=== PATIENT | male | born 1990 | race Caucasian/White ===

== ENCOUNTER 2016-12-10 04:29 | Emergency (ER) | payer SELFPAY ==
[2016-12-10 04:36] VITALS: BP 120/81
[2016-12-10] MEDS ORDERED: Ibuprofen TAB* 600 MG PO ONE (04:50)
[2016-12-10] MEDS ORDERED: Penicillin VK TAB* 250 MG PO ONE (04:50)
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
== END 2016-12-10 05:03 | disposition home or self-care (01) ==
LOC: ED 04:29
DX: K08.89 Other specified disorders of teeth and supporting structures (principal)
CPT/HCPCS: 99282; A9270-GY

== ENCOUNTER 2017-04-20 16:42 | Emergency (ER) | payer SELFPAY ==
[2017-04-20 16:49] VITALS: BP 118/72
--- NOTE | 2017-04-20 17:37 | UC ---
Lower Extremity/Ankle HPI - HPI Summary HPI Summary: Itchy, tender, red oval rash on L boogie starting yesterday. Pt had many stings on upper body from wasps but did not notice any on his lower legs. Denies fever or severe pain. Has been using topical benadryl without relief. - History of Current Complaint Chief Complaint: JOSEkin Stated Complaint: BUG BITE,RASH Time Seen by Provider: 04/20/17 17:23 Hx Obtained From: Patient Onset/Duration: Gradual Onset, Lasting Days Severity Initially: Mild Severity Currently: Moderate Alleviating Factor(s): Rest Able to Bear Weight: Yes - Allergies/Home Medications Allergies/Adverse Reactions: Allergies Allergy/AdvReac Type Severity Reaction Status Date / Time Acetaminophen [From Tylenol] Allergy Rash Verified 04/02/16 13:12 PMH/Surg Hx/FS Hx/Imm Hx - Additional Past Medical History Additional PMH: chronic back pain - Surgical History Surgical History: None - Family History Known Family History: Positive: Other - Panic attacks - Social History Lives: With Family Alcohol Use: Rare Substance Use Type: Marijuana, Prescribed Substance Use Comment - Amount & Last Used: hydrocodone 5/325 q4h prn, marijuana occasionally Smoking Status (MU): Light Every Day Tobacco Smoker Type: Cigarettes Cessation Counseling: Patient Advised to Stop Review of Systems Constitutional: Negative Skin: Rash Eyes: Negative ENT: Negative Respiratory: Negative Cardiovascular: Negative Gastrointestinal: Negative Genitourinary: Negative Motor: Negative Neurovascular: Negative Musculoskeletal: Negative Neurological: Negative Psychological: Negative All Other Systems Reviewed And Are Negative: Yes Physical Exam Triage Information Reviewed: Yes Appearance: Well-Appearing, No Pain Distress, Well-Nourished Vital Signs: Initial Vital Signs Temp 99.4 F 04/20/17 16:46 Pulse 80 04/20/17 16:46 Resp 18 04/20/17 16:46 BP 118/72 04/20/17 16:46 Pulse Ox 100 04/20/17 16:46 Vital Signs Reviewed: Yes Eye Exam: Normal, Other - PERRL Eyes: Positive: Conjunctiva Clear ENT Exam: Normal ENT: Positive: Normal ENT inspection, Hearing grossly normal, Pharynx normal, TMs normal Dental: Positive: Gross Decay/Caries @ - diffuse, all teeth decayed and broken Neck exam: Normal Respiratory Exam: Normal Respiratory: Positive: Chest non-tender, Lungs clear, Normal breath sounds, No respiratory distress, No accessory muscle use Cardiovascular Exam: Normal Cardiovascular: Positive: RRR, No Murmur Musculoskeletal Exam: Normal Musculoskeletal: Positive: Strength Intact, ROM Intact Psychological Exam: Normal Skin Exam: Other - 25cm x 18cm round reddened area on L boogie, itchy but not painful on exam, no streaking or drainage. Lower Extremity Course/Dx - Differential Dx/Diagnosis Provider Diagnoses: LLE insect sting, large local reaction Discharge - Discharge Plan Condition: Stable Disposition: HOME Prescriptions: predniSONE TAB* [Deltasone TAB*] 50 mg PO DAILY #3 tab Patient Education Materials: Insect Bite or Sting (ED) Referrals: Dennys SALGUERO,Ugo Voss [Primary Care Provider] - Additional Instructions: Call or return if you do not have gradual improvement over the next several days. Come back right away if you have streaking from the red area, fever, or increasing pain.
== END 2017-04-20 17:40 | disposition home or self-care (01) ==
LOC: UCEAST 16:42
DX: S80.862A Insect bite (nonvenomous), left lower leg, initial encounter (principal); R21 Rash and other nonspecific skin eruption; W57.XXXA Bitten or stung by nonvenomous insect and other nonvenomous arthropods, initial encounter; Y93.9 Activity, unspecified; Y92.9 Unspecified place or not applicable; Z88.6 Allergy status to analgesic agent; F12.90 Cannabis use, unspecified, uncomplicated; F17.210 Nicotine dependence, cigarettes, uncomplicated
CPT/HCPCS: 99212; G0463

== ENCOUNTER 2017-06-08 17:15 | Emergency (ER) | payer SELFPAY ==
--- NOTE | 2017-06-08 19:15 | RAD ---
INDICATION: Atraumatic left hip pain COMPARISON: None TECHNIQUE: 3 views of the left hip were obtained. FINDINGS: The visualized bones of the left hip are well-corticated and properly aligned. The joint spaces are normal. There is no radiographic evidence of acute fracture or dislocation. IMPRESSION: Normal radiograph of the left hip. If the patient's symptoms persist follow-up imaging is recommended.
[2017-06-08 19:46] VITALS: BP 109/64
--- NOTE | 2017-06-08 23:21 | UC ---
Lower Extremity/Ankle HPI - HPI Summary HPI Summary: 1 WEEK OF LEFT HIP PAIN. WORSE AT NIGHT AFTER LAYING DOWN FOR BED AND IN THE MORNING AND BETTER DURING THE DAY. NO DISCRETE INJURY. DOES A LOT OF PHYSICAL ACTIVITY AT WORK. NO SWELLING OR BRUISING. - History of Current Complaint Chief Complaint: UCLowerExtremity Stated Complaint: LEG PAIN Time Seen by Provider: 06/08/17 18:00 Hx Obtained From: Patient Onset/Duration: Sudden Onset, Lasting Days, Still Present Severity Initially: Moderate Severity Currently: Moderate Pain Intensity: 3 Pain Scale Used: 0-10 Numeric Aggravating Factor(s): Standing, Ambulation Alleviating Factor(s): Nothing Able to Bear Weight: Yes - Allergies/Home Medications Allergies/Adverse Reactions: Allergies Allergy/AdvReac Type Severity Reaction Status Date / Time Acetaminophen [From Tylenol] Allergy Rash Verified 04/02/16 13:12 Home Medications: Home Medications FLUoxetine CAP* [Prozac CAP*] 20 mg PO DAILY 06/08/17 [History Confirmed ] PMH/Surg Hx/FS Hx/Imm Hx Psychological History: Anxiety - Surgical History Surgical History: None - Family History Known Family History: Positive: Other - Panic attacks Negative: Hypertension - Social History Alcohol Use: Rare Substance Use Type: Marijuana, Prescribed Substance Use Comment - Amount & Last Used: hydrocodone 5/325 q4h prn, marijuana occasionally Smoking Status (MU): Light Every Day Tobacco Smoker Type: Cigarettes Review of Systems Constitutional: Negative Skin: Negative Respiratory: Negative Cardiovascular: Negative Gastrointestinal: Negative Musculoskeletal: Arthralgia, Decreased ROM, Myalgia All Other Systems Reviewed And Are Negative: Yes Physical Exam Triage Information Reviewed: Yes Appearance: Well-Appearing, No Pain Distress, Well-Nourished Vital Signs: Initial Vital Signs Temp 98.5 F 06/08/17 17:20 Pulse 52 06/08/17 17:20 Resp 19 06/08/17 17:20 BP 122/90 06/08/17 17:20 Pulse Ox 100 06/08/17 17:20 Vital Signs Reviewed: Yes Eyes: Positive: Conjunctiva Clear ENT: Positive: Hearing grossly normal Neck: Positive: Supple Respiratory: Positive: No respiratory distress, No accessory muscle use Cardiovascular: Positive: Pulses Normal Musculoskeletal: Positive: No Edema, ROM Limited @ - LEFT HIP, Other: - TTP LEFT GROIN/MUSCULATURE. NO BONY TENDERNESS. PELVIS STABLE. NEG STRAIGHT LEG RAISE. NEG LOIDA/FAIR Neurological: Positive: Alert Psychological: Positive: Age Appropriate Behavior Skin: Negative: rashes Diagnostics - Radiology LEFT HIP XRAYS Xray Interpretation: No Acute Changes Radiology Interpretation Completed By: Radiologist Lower Extremity Course/Dx - Differential Dx/Diagnosis Provider Diagnoses: LEFT GROIN/MUSCLE STRAIN Discharge - Discharge Plan Condition: Stable Disposition: HOME Prescriptions: Cyclobenzaprine TAB* [Flexeril TAB*] 10 mg PO BID PRN #30 tab PRN Reason: Pain Naproxen [Naproxen EC] 500 mg PO BID PRN #30 tab PRN Reason: Pain Patient Education Materials: Muscle Strain (ED), Groin Strain (ED) Referrals: Dennys SALGUERO,Ugo Voss [Primary Care Provider] - If Needed Genaro Castañeda MD [Medical Doctor] - 2 Weeks Additional Instructions: LEFT HIP XRAY UNREMARKABLE. YOUR EXAM IS SUGGESTIVE OF A MUSCLE STRAIN. REST, STRETCH AND FOLLOW-UP WITH YOUR PCP OR ORTHO IF YOU ARE NOT IMPROVING OVER THE NEXT 1-2 WEEKS. BE AWARE THAT COADMINISTRATION OF FLEXERIL AND SSRI CAN INCREASE YOUR RISK OF SEROTONIN SYNDROME. IF YOU DEVELOP AGITATION, CONFUSION, SWEATS, TREMOR, MUSCLE STIFFNESS GO DIRECTLY TO THE ER
== END 2017-06-08 19:47 | disposition home or self-care (01) ==
LOC: UCEAST 17:15
DX: S39.011A Strain of muscle, fascia and tendon of abdomen, initial encounter (principal); X58.XXXA Exposure to other specified factors, initial encounter; Y93.9 Activity, unspecified; Y92.9 Unspecified place or not applicable; F41.9 Anxiety disorder, unspecified; Z88.6 Allergy status to analgesic agent; F12.90 Cannabis use, unspecified, uncomplicated; F17.210 Nicotine dependence, cigarettes, uncomplicated
CPT/HCPCS: 99212; G0463

== ENCOUNTER 2017-09-03 11:05 | Emergency (ER) | payer SELFPAY ==
[2017-09-03 11:28] VITALS: BP 106/61
--- NOTE | 2017-09-03 11:54 | UC ---
Elbow Pain - HPI Summary HPI Summary: Pt presents with left elbow pain. He tells me that he slipped on the ice and landed on his left elbow this morning at 1000. He thinks he is fine, but his fiancee wanted him to be checked out. Currently complaining of mild pain with flexing/extending his elbow. Has not taken anything for pain. Denies previous injury, numbness, tingling, or radiation of pain. - History of Current Complaint Chief Complaint: UCUpperExtremity Stated Complaint: ELBOW INJURY Time Seen by Provider: 09/03/17 11:53 Hx Obtained From: Patient Severity Initially: Mild Severity Currently: Mild Pain Intensity: 4 Pain Scale Used: 0-10 Numeric Location Of Pain: Is Discrete @ - left elbow Aggravating Factor(s): Movement Alleviating Factor(s): Rest - Allergies/Home Medications Allergies/Adverse Reactions: Allergies Allergy/AdvReac Type Severity Reaction Status Date / Time Acetaminophen [From Tylenol] Allergy Rash Verified 07/26/17 18:59 Ibuprofen Allergy Rash Verified 09/03/17 11:28 PMH/Surg Hx/FS Hx/Imm Hx Previously Healthy: Yes Psychological History: Anxiety, Depression - Surgical History Surgical History: None - Family History Known Family History: Positive: Other - Panic attacks Negative: Hypertension - Social History Occupation: Employed Full-time Lives: With Family Alcohol Use: Occasionally Substance Use Type: Marijuana Smoking Status (MU): Light Every Day Tobacco Smoker Type: Cigarettes Amount Used/How Often: 5-6 CIG/DAY Cessation Counseling: Counseled 3+Min - 10 Min - Immunization History Most Recent Influenza Vaccination: NOT UTD Review of Systems Constitutional: Negative Skin: Negative Respiratory: Negative Cardiovascular: Negative Neurovascular: Negative Musculoskeletal: Other: - Pain left elbow Neurological: Negative Psychological: Negative All Other Systems Reviewed And Are Negative: Yes Physical Exam Triage Information Reviewed: Yes Appearance: Well-Appearing, Well-Nourished Vital Signs: Initial Vital Signs Temp 97.9 F 09/03/17 11:24 Pulse 72 09/03/17 11:24 Resp 16 09/03/17 11:24 BP 106/61 09/03/17 11:24 Pulse Ox 98 09/03/17 11:24 Vital Signs Reviewed: Yes Neck: Positive: Supple, No Lymphadenopathy, Other: - FROM. NTTP Respiratory: Positive: Chest non-tender, Lungs clear, Normal breath sounds, No respiratory distress Cardiovascular: Positive: RRR, No Murmur, Pulses Normal Musculoskeletal: Positive: Strength Intact - Left elbow, ROM Intact - Left elbow , No Edema - Left elbow, Other: - Mild TTP over medial left elbow. No obvious bony deformity. FROM left wrist and all digits. Home Health Care Physician strength 5/5. Neurological: Positive: Alert, Other: - C4-T1 sensations intact. Psychological: Positive: Age Appropriate Behavior Skin: Positive: Other - No ecchymosis, erythema, or open wounds.. Negative: rashes Elbow Pain Course/Dx - Course Course Of Treatment: Elbow XR: IMPRESSION: NO ACUTE OSSEOUS INJURY. IF SYMPTOMS PERSIST, RECOMMEND REPEAT IMAGING. Suspect elbow contusion. Advised rest, ice, and elevation. Pt was offered a sling and/or KAYLYN wrap - declined. He will do as mentioned above and take ibuprofen for pain. - Differential Dx/Diagnosis Differential Diagnosis/HQI/PQRI: Contusion, Dislocation, Fracture (Closed), Fracture (Open), Sprain, Strain Provider Diagnoses: Left elbow contusion Discharge - Discharge Plan Condition: Stable Disposition: HOME Patient Education Materials: Contusion in Adults (ED) Referrals: Dennys SALGUERO,Ugo Voss [Primary Care Provider] - Additional Instructions: If you develop a fever, SOB, chest pain, new or worsening symptoms - please call your PCP or go to the ED. 1) Rest, Ice, and elevate your elbow as much as possible for the next 24- 48hours. 2) May take tylenol OTC or ibuprofen OTC as needed for any pain or discomfort.
--- NOTE | 2017-09-03 12:01 | RAD ---
HISTORY: Left elbow pain, fall COMPARISONS: None VIEWS: 4, Frontal, lateral, and oblique views of the left elbow FINDINGS: BONE DENSITY: Normal. BONES: There is no displaced fracture. JOINTS: There is no arthropathy. There is no posterior supracondylar fat pad to suggest a joint effusion. ALIGNMENT: There is no dislocation. SOFT TISSUES: Unremarkable. OTHER FINDINGS: None. IMPRESSION: NO ACUTE OSSEOUS INJURY. IF SYMPTOMS PERSIST, RECOMMEND REPEAT IMAGING.
== END 2017-09-03 12:23 | disposition home or self-care (01) ==
LOC: UCEAST 11:05
DX: S50.02XA Contusion of left elbow, initial encounter (principal); W00.0XXA Fall on same level due to ice and snow, initial encounter; Y92.9 Unspecified place or not applicable; F12.90 Cannabis use, unspecified, uncomplicated; Z88.6 Allergy status to analgesic agent; F41.9 Anxiety disorder, unspecified; F32.9 Major depressive disorder, single episode, unspecified; F17.210 Nicotine dependence, cigarettes, uncomplicated
CPT/HCPCS: 99211; G0463

== ENCOUNTER 2017-09-12 21:12 | Emergency (ER) | payer SELFPAY ==
[2017-09-12 21:20] VITALS: BP 104/68
[2017-09-12] MEDS ORDERED: Penicillin VK TAB* 250 MG PO ONE ×2 (21:26)
[2017-09-12] MEDS ORDERED: Penicillin VK TAB* 250 MG ONE (21:27)
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
== END 2017-09-12 21:41 | disposition home or self-care (01) ==
LOC: UCEAST 21:12
DX: K08.89 Other specified disorders of teeth and supporting structures (principal); K02.9 Dental caries, unspecified; F17.210 Nicotine dependence, cigarettes, uncomplicated; Z88.6 Allergy status to analgesic agent
CPT/HCPCS: 99212; A9270-GY; G0463

== ENCOUNTER 2018-02-13 22:34 | Emergency (ER) | payer SELFPAY ==
[2018-02-13 22:46] VITALS: BP 121/100
== END 2018-02-14 00:47 | disposition left against medical advice (07) ==
LOC: ED 22:34
DX: E86.0 Dehydration (principal); Z53.21 Procedure and treatment not carried out due to patient leaving prior to being seen by health care provider

== ENCOUNTER 2019-06-04 19:54 | Emergency (ER) | payer SELFPAY ==
[2019-06-04 20:21] VITALS: BP 137/98
--- NOTE | 2019-06-04 20:24 | UC ---
Laceration HPI - HPI Summary HPI Summary: 29-year-old male who cut his left thumb on a piece of steel wool while he was washing dishes. He believes his tetanus is up-to-date but he prefers to follow- up with his primary care provider regarding that. He states the area did not stop bleeding and that is why he is seeking treatment however at this time it is no longer bleeding. - History Of Current Complaint Chief Complaint: UCLaceration Stated Complaint: THUMB LACERATION Time Seen by Provider: 06/04/19 20:18 Hx Obtained From: Patient Laceration Location: Finger Mechanism Of Injury: Sharp Trauma Onset/Duration: Sudden Onset Severity: Mild Pain Intensity: 7 Aggravating Factors: Nothing Hands: 1 - scratch 1.0 cm in length Related History: Occupational Injury - Allergies/Home Medications Allergies/Adverse Reactions: Allergies Allergy/AdvReac Type Severity Reaction Status Date / Time acetaminophen Allergy Rash Verified 02/13/18 22:44 ibuprofen Allergy Rash Verified 02/13/18 22:44 Home Medications: Home Medications NK [No Home Medications Reported] 06/04/19 [History Confirmed 06/04/19] PMH/Surg Hx/FS Hx/Imm Hx Previously Healthy: Yes - Surgical History Surgical History: None - Family History Known Family History: Positive: Other - Panic attacks Negative: Hypertension - Social History Alcohol Use: Occasionally Substance Use Type: Marijuana Substance Use Comment - Amount & Last Used: occasionally Smoking Status (MU): Current Every Day Smoker Type: Cigarettes Amount Used/How Often: 1 ppweek - Immunization History Most Recent Influenza Vaccination: NOT UTD Review of Systems All Other Systems Reviewed And Are Negative: Yes Skin: Positive: Other - Superficial scratch left thumb. Bleeding is controlled. Motor: Positive: Negative Neurovascular: Positive: Negative Musculoskeletal: Positive: Negative Neurological: Positive: Negative Psychological: Positive: Negative Is Patient Immunocompromised?: No Physical Exam Triage Information Reviewed: Yes Appearance: Well-Appearing, No Pain Distress, Well-Nourished Vital Signs: Initial Vital Signs Temp 99.3 F 06/04/19 20:08 Pulse 93 06/04/19 20:08 Resp 16 06/04/19 20:08 BP 137/98 09/18/19 20:08 Pulse Ox 100 06/04/19 20:08 Vital Signs Reviewed: Yes Musculoskeletal Exam: Normal Musculoskeletal: Positive: Strength Intact - Good flexion and extension against resistance. Good peripheral pulses neuro sensation capillary refill., ROM Intact Neurological Exam: Normal Neurological: Positive: Alert, Muscle Tone Normal Psychological Exam: Normal Skin Exam: Other - Patient has a 1.0 cm superficial scratch to the palmar aspect of his left thumb midportion. Laceration Course/Dx - Course/Dx Course Of Treatment: Patient is comfortable here. A Band-Aid was applied. He's to watch for signs of infection. He preferred to follow-up with his primary care provider regarding his tetanus status. - Diagnosis Provider Diagnosis: Laceration of left thumb Discharge ED - Sign-Out/Discharge Documenting (check all that apply): Patient Departure All imaging exams completed and their final reports reviewed: No Studies - Discharge Plan Condition: Good Disposition: HOME Patient Education Materials: Laceration (DC) Referrals: Dennys SALGUERO,Ugo Voss [Primary Care Provider] - Additional Instructions: Watch for signs of infection such as hot, red, tender, red streaks pus drainage. Change Band-Aid daily. If your finger starts bleeding again elevate and apply pressure. - Billing Disposition and Condition Condition: GOOD Disposition: Home - Attestation Statements Provider Attestation: This patient was not seen by me. I was available for consult. JOHN
== END 2019-06-04 20:30 | disposition home or self-care (01) ==
LOC: UCEAST 19:54
DX: S61.012A Laceration without foreign body of left thumb without damage to nail, initial encounter (principal); W26.8XXA Contact with other sharp object(s), not elsewhere classified, initial encounter; Y93.G1 Activity, food preparation and clean up; Y92.010 Kitchen of single-family (private) house as the place of occurrence of the external cause; Y99.8 Other external cause status; F17.210 Nicotine dependence, cigarettes, uncomplicated
CPT/HCPCS: 99211; G0463

== ENCOUNTER 2020-01-15 04:07 | Emergency (ER) | payer SELFPAY ==
[2020-01-15 04:46] VITALS: BP 102/72
== END 2020-01-15 04:44 | disposition home or self-care (01) ==
LOC: ED 04:07